=== PATIENT | female | born 1980 | race Caucasian/White ===

== ENCOUNTER 2022-05-11 10:09 | Outpatient (CLI) | payer BC, SELFPAY ==
[2022-05-11 10:35] LABS: Influenza Type A Negative (Negative); Influenza Type B Negative (Negative)
== END 2022-05-11 10:10 | disposition home or self-care (01) ==
LOC: LKVREF 10:09
PROVIDERS: PCP Physician Assistant Medical; Visit Provider Physician Assistant Medical
DX: Z20.822 Contact with and (suspected) exposure to COVID-19 (principal); J02.9 Acute pharyngitis, unspecified
CPT/HCPCS: 87804

== ENCOUNTER 2022-10-10 13:33 | Outpatient (CLI) | payer BC, SELFPAY | END 2022-10-10 13:34 | disposition home or self-care (01) | PROVIDERS: PCP Physician Assistant Medical; Visit Provider Registered Nurse | DX: R10.9 Unspecified abdominal pain (principal); R68.82 Decreased libido; R19.7 Diarrhea, unspecified | CPT/HCPCS: 80076; 83690; 87086 ==

== ENCOUNTER 2022-10-10 14:51 | Emergency (ER) | payer BC, SELFPAY ==
[2022-10-10 14:56] VITALS: BP 127/86; PULSE 96; RESP 14; TEMP 36.2; O2SAT 98; BMI 39.0
--- NOTE | 2022-10-10 15:32 | CRLHL7_ITS ---
For Patients: As a result of the Century Cures Act, medical imaging exams and procedure reports are released immediately into your electronic medical record. You may view this report before your referring provider. If you have questions, please contact your health care provider. Indication: Left lower quadrant pain Technique: Volumetric multidetector CT images of the abdomen and pelvis were obtained after the administration of intravenous contrast. 100 cc Isovue 370 low osmolar intravenous contrast Comparison: None available. Findings: The lung bases are clear. The liver demonstrates a focal mass lesion with peripheral nodular enhancement occupying the left liver lobe measuring 9.6 x 6.6 centimeters which may represent a large hemangioma versus focal nodular hyperplasia. The portal vein is patent. The gallbladder is unremarkable without evidence of radiopaque calculus. There is no significant common biliary ductal dilatation or abrupt cut off. The spleen is normal in enhancement and size. The stomach and duodenum are grossly unremarkable. The pancreas is normal in enhancement without significant atrophy. The adrenal glands are unremarkable. The kidneys demonstrate preserved corticomedullary differentiation without evidence of obstructive uropathy. There is mild focal thickening and pericolonic inflammation of the distal descending/proximal sigmoid colon consistent with diverticulitis. The appendix is unremarkable. There is no significant mesenteric, retroperitoneal, or pelvic sidewall lymph nodes. The aorta is nonaneurysmal. There is no significant atherosclerotic disease appreciated. The solid pelvic viscera are grossly unremarkable. There is no free fluid or free air. There is a small fat containing umbilical hernia. The lumbar vertebral body heights are grossly maintained. No evidence of displaced fracture. Impression: Mild focal thickening and pericolonic inflammation of the distal descending colon consistent with likely diverticulitis versus epiploic appendagitis. Moderate hepatomegaly with demonstration of a mass lesion within the left liver lobe measuring 9.6 centimeters with peripheral nodular enhancement likely representing a large hemangioma versus focal nodular hyperplasia. No other acute intra-abdominal abnormality is appreciated. Please note that all CT scans at this facility use dose modulation, iterative reconstruction, and/or weight-based dosing when appropriate to reduce radiation dose to as low as reasonably achievable. Dictated by Thierry Pearson MD @ 10/10/2022 5:01:15 PM (Electronically Signed)
--- NOTE | 2022-10-10 15:33 | ED.ABDPAIN ---
HPI - Abdominal Pain General Chief Complaint: Abdominal Pain Stated Complaint: Lower L abdominal pain Time Seen by Provider: 10/10/22 14:52 History of Present Illness HPI narrative: This 42-year-old female was at urgent care and was sent here for further evaluation. She is reporting left lower quadrant abdominal pain that began 2 days ago and has been worsening since then. She states that the pain is relieved somewhat if she remains still but worse with any kind of movement. The bumps on the car ride here were very uncomfortable. She has not had any fevers, diarrhea, or constipation. She does not report any dysuria symptoms. She had labs drawn at the urgent care visit and these returned with essentially normal results. Her white count was slightly elevated at 11.89. She states that she has otherwise been in good health. She denies any possibility of . Related Data Home Medications Medication Instructions Recorded Confirmed Pre and probiotic PO 10/07/22 10/10/22 cholecalciferol (vitamin D3) 250 250 mcg PO 10/07/22 10/10/22 mcg (10,000 unit) capsule etonogestrel 0.12 mg-ethinyl 1 vag ring vaginal DIRECTED 10/07/22 10/10/22 estradiol 0.015 mg/24 hr vaginal ring hydrocortisone 2.5 % topical cream 1 applic topical BID 10/07/22 10/10/22 magnesium oxide 400 mg (241.3 mg mg PO DAILY 10/07/22 10/10/22 magnesium) tablet Previous Rx's Medication Instructions Recorded sertraline 50 mg tablet 75 mg PO QDAY #135 tabs 10/07/22 ciprofloxacin HCl 500 mg tablet 500 mg PO BID 10 days #20 tabs 10/10/22 (Cipro) ketorolac 10 mg tablet 10 mg PO Q8H 5 days #15 tabs 10/10/22 metronidazole 500 mg tablet 500 mg PO BID 10 days #20 tabs 10/10/22 Allergies Allergy/AdvReac Type Severity Reaction Status Date / Time seasonal allergies Allergy Mild Itchy eye Uncoded 10/10/22 13:04 Review of Systems Status of ROS Reports: 10 or more systems reviewed and unremarkable except as noted in History and below Narrative Constitutional: No fevers, no weight gain or loss. Eyes: No discharge. No vision changes. HENT: No congestion, no sore throat, no ear pain. Cardiovascular: No chest pain, no palpitations. Respiratory: No shortness of breath, no wheezes, no cough. Gastrointestinal: No vomiting, no diarrhea. Left-sided abdominal pain that is worse with movement and relieved with rest. Genitourinary: No dysuria, no hematuria. Musculoskeletal: Normal range of motion. Skin: No rashes, no pruritis. Neurological: No dizziness, weakness, sensory change, speech change. Endo/Heme/Allergies: No bruising or bleeding. No polydipsia. Pysch: no suicidality, no anxiety, no insomnia. All other systems reviewed and are negative. [facility] Medical History (Updated 10/10/22 @ 17:41 by Manuel Pollard MD) Chronic diarrhea Family History (Updated 03/27/22 @ 09:40 by Queta Melchor (PSR)) Paternal Grandmother Breast cancer Stroke Diabetes Father Diabetes High blood pressure Maternal Grandmother Stroke Social History (Updated 03/27/22 @ 09:44 by Queta Melchor (PSR)) Narrative: Non smoker Smoking Status: Never smoker How often do you have a drink containing alcohol: never AUDIT-C Alcohol total score: 0 Non-prescribed substance use: denies use Little interest or pleasure in doing things: not at all Feeling down, depressed, or hopeless: not at all Exam Narrative: Exam Narrative: Constitutional: Well-developed, well-nourished, no acute distress. HEENT: Normocephalic, atraumatic. Neck: Normal range of motion. Nontender. Supple. Heart: Regular. No murmurs. Normal rate. Intact distal pulses. Lungs: Clear to auscultation. No chest discomfort. No wheezes, rhonchi, or rales. Abdomen: Normal bowel sounds. Tenderness on the left side of the abdomen. Mild rebound tenderness. Genitalia: Deferred. Back: No midline tenderness. Normal range of motion. Extremities: Normal range of motion. No injury. Skin: Intact. No rash. Warm. No erythema or pallor. Neurologic: No altered sensation. No weakness. Alert and oriented. Psychiatric: No suicidality. No anxiety or depression. No insomnia. Nursing notes and vitals signs are reviewed. Const: Vital Signs, click to edit/add: Vital Signs - 24 hr 10/10/22 14:56 Temperature 97.1 F L Pulse Rate [Pulse Oximeter] 96 Respiratory Rate 14 Blood Pressure [Ri ght Upper Arm] 127/86 Pulse Oximetry 98 Oxygen Delivery Me thod Room Air Course Vital Signs Vital signs: Initial Vital Signs Temperature 97.1 F L 10/10/22 14:56 Temperature Source Temporal Artery Scan 10/10/22 14:56 Pulse Rate 96 10/10/22 14:56 Pulse Rhythm 10/10/22 14:56 Respiratory Rate 14 10/10/22 14:56 Blood Pressure 127/86 10/10/22 14:56 Blood Pressure Mean 99 10/10/22 14:56 Blood Pressure Position Sitting 10/10/22 14:56 Pulse Oximetry 98 10/10/22 14:56 Oxygen Delivery Method 10/10/22 14:56 Vital Signs Temperature 97.1 F L 10/10/22 14:56 Pulse Rate 96 10/10/22 14:56 Respiratory Rate 14 10/10/22 14:56 Blood Pressure 127/86 10/10/22 14:56 Pulse Oximetry 98 10/10/22 14:56 Oxygen Delivery Method 10/10/22 14:56 Temperature 97.1 F L 10/10/22 14:56 Pulse Rate 96 10/10/22 14:56 Respiratory Rate 14 10/10/22 14:56 Blood Pressure 127/86 10/10/22 14:56 Pulse Oximetry 98 10/10/22 14:56 Oxygen Delivery Method 10/10/22 14:56 MDM - Abdominal Pain MDM Narrative Medical decision making narrative: This patient comes in with left-sided abdominal pain that is suspicious for diverticulitis. A CT scan of the abdomen and pelvis is acquired and does show some stranding along the descending colon that could be acute diverticulitis or epiploic appendagitis. Patient does have a slight bump in her white blood cell count. Her vital signs are in normal range. She did received prescription for Cipro and Flagyl along with Toradol. At the time of discharge the patient appears safe for outpatient management. The treatment plan is reviewed along with written and verbal return precautions. Reasons to return and the importance of close followup were also reviewed. Imaging Data CT scan - abdomen: Radiologist's impression: Mild focal thickening and pericolonic inflammation of the distal descending colon consistent with likely diverticulitis versus epiploic appendagitis. Moderate hepatomegaly with demonstration of a mass lesion within the left liver lobe measuring 9.6 centimeters with peripheral nodular enhancement likely representing a large hemangioma versus focal nodular hyperplasia. No other acute intra-abdominal abnormality is appreciated. Discharge Plan Discharge Clinical Impression: Diverticulitis Patient Disposition: Home, Self-Care Condition: Stable Additional Instructions: Take medication as prescribed. Follow up with MD or return if worsening symptoms happen. Prescriptions: New metronidazole 500 mg tablet 500 mg PO BID 10 Days Qty: 20 0RF ciprofloxacin HCl [Cipro] 500 mg tablet 500 mg PO BID 10 Days Qty: 20 0RF ketorolac 10 mg tablet 10 mg PO Q8H 5 Days Qty: 15 0RF No Action cholecalciferol (vitamin D3) 250 mcg (10,000 unit) capsule 250 mcg PO magnesium oxide 400 mg (241.3 mg magnesium) tablet PO DAILY Pre and probiotic PO etonogestrel-ethinyl estradiol 0.12-0.015 mg/24 hr ring 1 vag ring vaginal DIRECTED Rx Instructions: INSERT VAGINALLY. MAY LEAVE IN PLACE FOR 4 WEEKS, THEN INSERT NEW RING. hydrocortisone 2.5 % cream 1 applic topical BID Rx Instructions: Apply twice daily as needed. sertraline 50 mg tablet 75 mg PO QDAY Qty: 135 3RF Follow Up/Referrals: Colleen Morales PA-C [Primary Care Provider] - Stand Alone Forms: [employer] Info Instructions
[2022-10-10 17:57] VITALS: BP 124/74; PULSE 82; RESP 12; TEMP 36.2
== END 2022-10-10 17:55 | disposition home or self-care (01) ==
PROVIDERS: Emergency Provider Emergency Medicine Emergency Medical Services; PCP Physician Assistant Medical
DX: K57.30 Diverticulosis of large intestine without perforation or abscess without bleeding (principal)
CPT/HCPCS: 74177; 99284; Q9967

== ENCOUNTER 2022-10-14 09:29 | Outpatient (CLI) | payer BC, SELFPAY | END 2022-10-14 09:30 | disposition home or self-care (01) | PROVIDERS: PCP Physician Assistant Medical; Visit Provider Physician Assistant Medical | DX: D64.9 Anemia, unspecified (principal); K57.92 Diverticulitis of intestine, part unspecified, without perforation or abscess without bleeding | CPT/HCPCS: 80053 ==

== ENCOUNTER 2022-11-20 16:20 | Outpatient (CLI) | payer BC, SELFPAY | END 2022-11-20 16:21 | disposition home or self-care (01) | LOC: LKVREF 16:21 | PROVIDERS: PCP Physician Assistant Medical; Visit Provider Physician Assistant Medical | DX: Z01.818 Encounter for other preprocedural examination (principal); I10 Essential (primary) hypertension; D64.9 Anemia, unspecified; R68.82 Decreased libido | CPT/HCPCS: 84443; 87086 ==

== ENCOUNTER 2022-11-29 08:18 | Outpatient (CLI) | payer BC, SELFPAY ==
--- NOTE | 2022-11-29 11:22 | W.ANESCHARGE ---
Anesthesia Charges Start Date/Time Anesthesia Start Date: 11/29/22 Anesthesia Start Time: 09:00 Stop Date/Time Anesthesia Stop Date: 11/29/22 Anesthesia Stop Time: 09:52
--- NOTE | 2022-11-29 11:38 | W.ANESCHARGE ---
Anesthesia Charges Start Date/Time Anesthesia Start Date: 11/29/22 Anesthesia Start Time: 09:00 Stop Date/Time Anesthesia Stop Date: 11/29/22 Anesthesia Stop Time: 09:52
== END 2022-11-29 08:19 | disposition home or self-care (01) ==
LOC: OP CLINIC 08:18
PROVIDERS: PCP Physician Assistant Medical; Visit Provider Internal Medicine
DX: R93.3 Abnormal findings on diagnostic imaging of other parts of digestive tract (principal); K57.30 Diverticulosis of large intestine without perforation or abscess without bleeding; R13.10 Dysphagia, unspecified; R19.8 Other specified symptoms and signs involving the digestive system and abdomen
CPT/HCPCS: 00813; 43239; 45378; 88305; J2405; J2704

== ENCOUNTER 2024-10-18 09:59 | Outpatient (CLI) | payer BC, SELFPAY | END 2024-10-18 10:00 | disposition home or self-care (01) | PROVIDERS: PCP Physician Assistant Medical; Visit Provider Physician Assistant Medical | DX: Z13.228 Encounter for screening for other metabolic disorders (principal); Z13.220 Encounter for screening for lipoid disorders; Z13.21 Encounter for screening for nutritional disorder; Z13.29 Encounter for screening for other suspected endocrine disorder | CPT/HCPCS: 80053; 80061; 82607; 82670; 83001; 84403; 84443 ==

== ENCOUNTER 2024-11-05 08:32 | Outpatient (CLI) | payer BC, SELFPAY ==
--- NOTE | 2024-11-05 08:45 | CRLHL7_ITS ---
For Patients: As a result of the Century Cures Act, medical imaging exams and procedure reports are released immediately into your electronic medical record. You may view this report before your referring provider. If you have questions, please contact your health care provider. BILATERAL SCREENING MAMMOGRAM WITH COMPUTER-AIDED DETECTION AND TOMOSYNTHESIS TECHNIQUE: CC and MLO views were obtained. These mammographic images have been obtained using full-field digital technique. These mammographic images were interpreted with the benefit of computer-aided detection. Breast Tomosynthesis was used in this interpretation. COMPARISON FILM: 12/24/22. FINDINGS: The breasts are heterogeneously dense, which may obscure small masses. IMPRESSION: There is no radiographic evidence for malignancy. ASSESSMENT: BI-RADS Category 2: Benign RECOMMENDATION: Routine screening mammogram in 1 year. A lay language report of this examination will be provided to the patient. Nam Grande M.D. Diagnostic Radiologist [email or web address] SP/Dictated by: Nam Grande MD @ 11/11/2024 10:13:00 AM (Electronically Signed)
== END 2024-11-05 08:33 | disposition home or self-care (01) ==
LOC: MAMMO 08:34
PROVIDERS: PCP Physician Assistant Medical; Visit Provider Physician Assistant Medical
DX: Z12.31 Encounter for screening mammogram for malignant neoplasm of breast (principal); R92.333 Mammographic heterogeneous density, bilateral breasts
CPT/HCPCS: 77063; 77067